=== PATIENT | female | born 1990 | race Caucasian/White ===

== ENCOUNTER 2020-10-10 16:56 | Emergency (ER) | payer OTHER ==
[~2020-10-10 16:56] MED LIST: BENTYL 20MG TAB20 MG PO; CYCLOBENZAPRINE5 MG PO; KEFLEX CAP 500500 MG PO; NAPROSYN500 MG PO; PROTONIX40 MG PO; ZOFRAN ODT 4 MG4 MG SL
== END 2020-10-10 18:00 | disposition left against medical advice (07) ==
LOC: ER1 16:56
DX: R68.89 Other general symptoms and signs (principal); T50.B95A Adverse effect of other viral vaccines, initial encounter; Z53.21 Procedure and treatment not carried out due to patient leaving prior to being seen by health care provider